=== PATIENT | female | born 1940 | race Caucasian/White ===

== ENCOUNTER → 2016-11-30 | Outpatient (CLI) | payer OTHER ==
[~2016-11-30] VITALS: Ht 157.5 cm; Wt 72.8 kg
[~2016-11-30] MED LIST: ALPR-411 PO; APR/25 PO; ASCO500C3 PO; ASPI-232 PO; CALC-338 PO; FERR325T5 PO; FLUT0.0529; HYDR25TA4 PO; IBUP200C14 PO; METO1TAB31 PO; MULT-506 PO; PRLSR20 PO; RSTOPS OP; SERT1TAB71 PO; VALS320T PO
[2016-11-30 14:35] VITALS: BP 163/72; PULSE 70; Ht 157.5 cm; Wt 72.8 kg
[2016-11-30 14:36] VITALS: BP 150/68
== END | disposition home or self-care (01) ==
LOC: C.NEUR 13:55
PROVIDERS: ATTEND Internal Medicine Pulmonary Disease
DX: G47.33 Obstructive sleep apnea (adult) (pediatric) (principal)

== ENCOUNTER → 2018-01-07 | Outpatient (CLI) | payer OTHER ==
[~2018-01-07] VITALS: Ht 160 cm; Wt 65.5 kg
[~2018-01-07] MED LIST changes: -APR/25 PO; +HYDR-4716 PO; +METO-478 PO; -METO1TAB31 PO
[2018-01-07 15:24] VITALS: BP 170/73; PULSE 78; Ht 160 cm; Wt 65.5 kg
== END | disposition home or self-care (01) ==
LOC: C.NEUR 14:25
PROVIDERS: ATTEND Internal Medicine Pulmonary Disease
DX: G47.33 Obstructive sleep apnea (adult) (pediatric) (principal); I25.10 Atherosclerotic heart disease of native coronary artery without angina pectoris